=== PATIENT | male | born 1995 | race Caucasian/White ===

== ENCOUNTER 2024-10-31 13:42 | Emergency (ER) | payer OTHER, SELFPAY ==
--- OUTSIDE RECORDS SUMMARY | 2024-10-31 13:43 | XMS_ITS | Clinical Summary ---
Author Organization [facility] Address [place], [place] [address] Care Team Providers Care Skills Instructor Name Role Phone Mik Brooks MD Primary Care Provider [phone] Allergies No known active allergies Medications clindamycin 1% (CLEOCIN-T) 1 % gelIndications:H idradenitis suppurativa APPLY TOPICALLY TO THE AFFECTED AREA TWICE DAILY 180 g 1 3 Active Immunizations Name Administration Dates Next Due COVID-19 vaccine (Moderna 100mcg/0.5mL) PFMDV 09/19/2021 DTaP 06/14/2002,07/06/1998 DTaP-HIB (TriHIBIT) 1997,1997 Hepatitis A (Peds) 06/05/2009,05/18/2008 Hepatitis B (Peds) 03/27/1998 Hib Conjugate, Unspecified 07/06/1998 Inactivated Polio Vaccine 06/14/2002 MMR 06/14/2002,07/06/1998 Meningococcal Vaccine (Menactra) 06/05/2015,05/08 Oral Polio Vaccine 07/06/1998,1997 Tdap 06/05/2009,06/05/2002 Varicella Vaccine 05/28/2007,06/14/2002 Social History Tobacco Use Types Packs/Day Years Used Date Smoking Tobacco: Never Smokeless Tobacco: Never Tobacco Cessation:Counseling Given: Not Answered Alcohol Use Standard Drinks/Week Comments Not Currently 0 (1 standard drink = 0.6 oz pur e alcohol) PHQ-2 Answer Date Recorded PHQ-2 TOTAL SCORE 0 12/09/2022 Social Connections Answer Date Recorded Frequency of Communication with Friends and Fami ly Not on file 12/09/2022 Sex and Gender Information Value Date Recorded Sex Assigned at Not on file Legal Sex Male 2:14 PM CDT Gender Identity Not on file Sexual Orientation Not on file Obstetrics History Last Filed Vital Signs Vital Sign Reading Time Taken Comments Blood Pressure 118/68 12/09/2022 4:00 PM TATTOOER Pulse 66 12/09/2022 4:00 PM TATTOOER Temperature 37.4 C (99.3 F) 12/09/2022 4:00 PM TATTOOER Respiratory Rate - - Oxygen Saturation 98% 12/09/2022 4:00 PM TATTOOER Inhaled Oxygen Concentration - - Weight 153.3 kg (337 lb 14.4 oz) 12/09/2022 4:00 PM TATTOOER Height 190.8 cm (6' 3.12) 12/09/2022 4:00 PM CS T Body Mass Index 42.1 12/09/2022 4:00 PM TATTOOER Plan of Treatment Health Maintenance Due Date Last Done Comments HIV for age 15-65 2012 Hepatitis C screening for ag e 18-79 2015 Tetanus booster 06/05/2019 06/05/2009, 06/05/2002 BMI (ht and wt on same day) for age 18+ 12/10/2023 12/09/2022 Depression screening for age 12+ 12/10/2023 12/09/2022, 12/09/2022 COVID-19 vaccine series ( season) 2024 09/19/2021, 02/14/2021, 01/17/2021 Influenza for age 9-49 06/06/2024 Tdap Completed 06/05/2009, 06/05/2002 Pneumococcal series for age 6-49 Aged Out No longer eligible b ased on patient's age to complete this topic [id number] [employer] Care Teams Skills Instructor Relationship Specialty Start Date End Date Mik Brooks MD [address] [place] [address] PCP - General Family Practice 11/29/22
[2024-10-31 14:11] VITALS: BP 153/87; PULSE 75; RESP 18; TEMP 36.9; O2SAT 98; BMI 41.4
--- NOTE | 2024-10-31 14:40 | ED.GENADULT ---
HPI - General Adult General Chief complaint: Animal Bite Stated complaint: cat bite Time Seen by Provider: 10/31/24 14:04 Source: patient Mode of arrival: ambulatory Limitations: no limitations History of Present Illness HPI narrative: 29-year-old male presenting with a cat bite to the right hand that occurred approximately an hour ago. It is the patient's own cat that is vaccinated. Related Data Previous Rx's ?Medication ?Instructions ?Recorded amoxicillin 875 mg-potassium 1 tab PO BID 7 days #14 tabs 10/31/24 clavulanate 125 mg tablet Allergies Allergy/AdvReac Type Severity Reaction Status Date / Time No Known Drug Allergies Allergy Verified 10/31/24 14:11 Review of Systems Status of ROS: Reports: 10 or more systems reviewed and unremarkable except as noted in History and below Exam Narrative: Exam Narrative: Overweight, well-developed patient in no acute distress. Alert and oriented. Answers questions appropriately. Mood and affect are appropriate. Thoughts are goal oriented and rational. No tangential or magical thinking noted. Patient speaks in full sentences without needing to catch his breath. HEENT: Normocephalic atraumatic. Extraocular muscles are intact. Conjunctivae are moist without any icterus noted. Moist mucous membranes. Extremities: Patient has very superficial bites over the 1st knuckle on the right hand on the dorsal surface. Several scratches in the area. Any has superficial scratches of the upper arm as well. Full range of motion of all the fingers. Const: Vital Signs, click to edit/add: Vital Signs - 24 hr 10/31/24 14:11 Temperature 98.4 F Pulse Rate [Pulse Oximeter] 75 Respiratory Rate 18 Blood Pressure [Ri ght Upper Arm] 153/87 H Pulse Oximetry 98 Oxygen Delivery Me thod Room Air Course Course ED Course: Last tetanus shot was in 2008 so this was updated today. Vital Signs Vital signs: Initial Vital Signs Temperature 98.4 F 10/31/24 14:11 Temperature Source Temporal Artery Scan 10/31/24 14:11 Pulse Rate 75 10/31/24 14:11 Respiratory Rate 18 10/31/24 14:11 Blood Pressure 153/87 H 10/31/24 14:11 Blood Pressure Mean 109 H 10/31/24 14:11 Pulse Oximetry 98 10/31/24 14:11 Oxygen Delivery Method Room Air 10/31/24 14:11 Vital Signs Temperature 98.4 F 10/31/24 14:11 Pulse Rate 75 10/31/24 14:11 Respiratory Rate 18 10/31/24 14:11 Blood Pressure 153/87 H 10/31/24 14:11 Pulse Oximetry 98 10/31/24 14:11 Oxygen Delivery Method Room Air 10/31/24 14:11 Temperature 98.4 F 10/31/24 14:11 Pulse Rate 75 10/31/24 14:11 Respiratory Rate 18 10/31/24 14:11 Blood Pressure 153/87 H 10/31/24 14:11 Pulse Oximetry 98 10/31/24 14:11 Oxygen Delivery Method Room Air 10/31/24 14:11 Medical Decision Making MDM Narrative Medical decision making narrative: 29-year-old male with a cat bite, vaccinated cat. Will treat with Augmentin for a week. Discharge Plan Discharge Clinical Impression: Cat bite Patient Disposition: Home, Self-Care Condition: Stable Additional Instructions: Take all antibiotics as prescribed. Keep hand clean. You may notice increased swelling over the next couple of days. Okay to ice the hand as needed, do not apply ice directly to skin a do not ice for more than 20 minutes at a time. If after 48 hours of antibiotic treatment the hand continues to swell or get increasingly red, return for re-examination. Prescriptions: New amoxicillin-pot clavulanate 875-125 mg tablet 1 tab PO BID 7 Days Qty: 14 0RF Stand Alone Forms: MyHealth Info Instructions
--- OUTSIDE RECORDS SUMMARY | 2024-10-31 14:54 | XMS_ITS | Clinical Summary ---
Author Organization [facility] Address [place], [place] [address] Care Team Providers Care Trench Shovel Operator Name Role Phone Mik Brooks MD Primary Care Provider [phone]- [phone] Allergies No known active allergies Medications clindamycin [...] Comments Blood Pressure 118/68 12/09/2022 4:00 PM BUDGET CONTROLLER Pulse 66 12/09/2022 4:00 PM BUDGET CONTROLLER Temperature 37.4 C (99.3 F) 12/09/2022 4:00 PM BUDGET CONTROLLER Respiratory Rate - - Oxygen Saturation 98% 12/09/2022 4:00 PM BUDGET CONTROLLER Inhaled Oxygen Concentration - - Weight 153.3 kg (337 lb 14.4 oz) 12/09/2022 4:00 PM BUDGET CONTROLLER Height 190.8 cm (6' 3.12) 12/09/2022 4:00 PM CS T Body Mass Index 42.1 12/09/2022 4:00 PM BUDGET CONTROLLER Plan of Treatment Health Maintenance Due Date [...] patient's age to complete this topic Insurance [facility] [id number] [employer] Care Teams Trench Shovel Operator Relationship Specialty Start Date End Date Mik Brooks MD [address] [place] [address] PCP - General Family Practice 11/29/22
[2024-10-31] MEDS: TETANUS/DIPHTH/PERTUSSIS 0.5 ML SYRINGE IM (15:00)
== END 2024-10-31 15:05 | disposition home or self-care (01) ==
PROVIDERS: Emergency Provider Family Medicine
DX: S61.451A Open bite of right hand, initial encounter (principal); W55.01XA Bitten by cat, initial encounter
CPT/HCPCS: 90471; 90715; 99283; 99284